=== PATIENT | female | born 1990 | race Hispanic/Latino ===

== ENCOUNTER 2016-10-24 18:30 | Inpatient (IN) | payer OTHER ==
[~2016-10-24] VITALS: Ht 156.2 cm; Wt 83.0 kg
[~2016-10-24 18:30] MED LIST: PREN1TAB73 PO; iron sulfate PO
[2016-10-24] MEDS ORDERED: Oxytocin 30 Units/500 mL LR 30 UNITS in IV Premix 1 EACH IV PRN ×2 (18:50→20:55)
[2016-10-24] MEDS ORDERED: Hemorrhage Kit, Post Partum XX ONE ×2 (18:50→20:55)
[2016-10-24] MEDS ORDERED: Methylergonovine 0.2 mg/mL Inj IM PRN ×2 (18:50→20:55)
[2016-10-24] MEDS ORDERED: Lactated Ringer's 1,000 ML IV PRN (18:50)
[2016-10-24] MEDS ORDERED: Oxytocin 10 Unit/mL Inj IM PRN ×2 (18:50→20:55)
[2016-10-24] MEDS ORDERED: Carboprost 250 mCg/mL Inj IM PRN ×2 (18:50→20:55)
[2016-10-24] MEDS ORDERED: Sodium Chloride LOK Flush 10 mL Syringe IVFLUSH PRN (18:50)
[2016-10-24 19:05] LABS: Mean Corpuscular Hemoglobin 28.9 pg (27.0-35.0); Mean Corpuscular Volume 87.3 fL (81-100)
--- NOTE | 2016-10-24 20:06 | PCM.HPANE ---
Patient Data Surgeon Admitting Provider:Michel Nielsen Attending Provider:Michel Nielsen Primary Care Physician:Carine Harris MD Other Provider: Reason for Visit Term Labor TERM LABOR Ht/WT & BMI Body Mass Index Allergies Coded Allergies: No Known Allergies (Unverified Allergy, 05/11/10) Past Anesthesia History Anesthesia History: Denies:: Abnormal Airway Diabetes History Hx Diabetes?: No Medications Hypertension Medication: No Home Meds Incl Beta Justina: No Reported Medications [iron sulfate] No Conflict [id number] Mg PO DAILY 11/05/12 Vit/Fe Fumarate/Fa-Expunged Drug, Do (-Expunged Drug, Do Not Renew!)1 Tab Tablet1 Tab PO DAILY 05/11/10 History HEENT History: Denies:: Abnormal Airway Difficult Intubation Hx of Heart Problems?: No Hx of Respiratory Problem?: No Hx Neurologic Problems?: No Hx of GI Problems?: No Hx of Problems?: No HX of Peritoneal Dialysis: No Hx Musculoskeletal Problems?: No Hx of Psycho/Social Problems?: No Hx Surgeries?: No Hx Any Other Health Problems?: No Hx Diabetes: No Hx Alcohol Use: NoHx Substance Use: No Smoking Status: Unknown if Ever Smoker Have You Smoked inLast 12 mo: No Stop/Bang Treated for Sleep Apnea?: No Do You Have a CPAP Machine?: No Risk Assessment Category Category 1A: Patient has history of documented sleep apnea, and HAS NOT received any narcotic, sedative or anesthesia administration during this stay. Category 1B: Patient has history of documented sleep apnea, and HAS received any narcotic , sedative or anesthesia administration during this stay Category 2: Patient has SUSPECTED Obstructive Sleep Apnea, and HAS received any narcotic , sedative or anesthesia administration during this stay. Category 3: Patient has SUSPECTED Obstructive Sleep Apnea and HAS NOT received narcotic, sedative or anesthesia administration during this stay. Category 4: Outpatient in Procedural Areas with known sleep apnea or who screen positive for High Risk via the STOP/BANG questionnaire. Exam Exam General Appearance: Alert, Oriented X3, Cooperative, No Acute Distress HEENT/AIRWAY: MP 2 Lungs: Clear to Auscultation, Normal Air Movement Heart: Exam Unremarkable, Regular Rate/Rhythm, No Murmurs/Rubs/Gallops Meds/Labs/Diagnostics Labs Test 10/24/16 18:45 10/24/16 19:00 White Blood Count 13.6th/mm3 (3.8-10.1) Red Blood Count 3.87mil/mm3 (3.90-5.20) Hemoglobin 11.2g/dL (12.0-15.6) Hematocrit 33.8% (35.0-46.0) Mean Corpuscular Volume 87.3fL (81-100) Mean Corpuscular Hemoglobin 28.9pg (27.0-35.0) Mean Corpuscular Hemoglobin Concent 33.1% (32.0-37.0) Red Cell Distribution Width 16.0% (12.3-15.4) Platelet Count 279bil/L (150-400) Urine Opiates Screen Negative Urine Methadone Screen Negative Urine Barbiturates Screen Negative Urine Amphetamines Screen Negative Urine Benzodiazepines Screen Negative Urine Cocaine Metabolite Screen Negative Urine Cannabinoids Screen Negative Plan Impression Patient chart reviewed, patient interviewed and anesthestic plan with risks, benefits, and alternatives discussed, and informed consent obtained. ASA Physical Status: ASA1 Normal Healthy Anesthetic Plan: Epidural Bene/Risks/Altern/Consents: Yes HP Complete Prior to Induction: Yes Ish Henriquez MD Oct 24, 2016 20:06
[2016-10-24] MEDS ORDERED: Lactated Ringer's 1,000 ML IV SCH (20:53)
[2016-10-24] MEDS ORDERED: Benzocaine (Dermoplast) 20% 60 Gm Spray TOPICAL PRN (20:55)
[2016-10-24] MEDS ORDERED: HYDROcodone-APAP 5-325 mg Tablet PO PRN (20:55)
[2016-10-24] MEDS ORDERED: LANOlin HPA 7 Gm Ointment TOPICAL PRN (20:55)
[2016-10-24] MEDS ORDERED: Witch Hazel-Glycerin Pads TOPICAL PRN (20:55)
--- NOTE | 2016-10-24 22:34 | PROCED ---
[address] [address] PROCEDURE NOTE PATIENT: HOLGER BLANCHARD : 1990 MR#: [id number] ADMIT: 10/24/2016 JOB ID: [id number] DATE OF SERVICE: 10/24/2016 POSTOPERATIVE DIAGNOSIS(ES): PREOPERATIVE DIAGNOSIS(ES): SURGEON: Michel Zapata MD On October 24, 2016 at 8:33 p.m. this 25-year-old, G3, P2 female at 38-1/2 weeks estimated gestational age delivered an by vacuum delivery. The patient presented to Labor and Delivery on her way down to [place] since she was a patient of the nurse stunt driver there. Unfortunately, at about 6 p.m., her water broke and she soaked herself and was having contractions and so she came here. The patient was 5 cm dilated and was admitted. At 6 cm dilation, she desired an epidural but was going fast and so she got an intrathecal block. This was effective. The patient's heart tracing was reactive and reassuring up until the point of pushing. She rapidly made it to complete and in the meantime, had no fever and required no antibiotics. She required about 15 minutes of pushing, but was not a highly effective pusher given the intrathecal block. The heart tracing was noted to have some significant terminal decelerations into the 60s and 70s, and so after a couple of episodes of that, the vacuum was applied in an area away from the fontanelles. There was notably no cervix present. The 1st pull was a pop-off as was the 2nd pull. She seemed to make progress and so I refrained from the vacuum for a set of contractions. During this set of contractions, the decelerations occurred again and so on the following set of contractions, the vacuum was applied. This time, there was no pop-off and it resulted in good advancement of the head to . The vacuum was released. The head was delivered with mom pushing alone. The shoulder delivered easily, but with the delivery of the shoulder it was noted that the cord had been pushed down over the shoulder towards the body and around the arm and legs. The was delivered nonetheless, and unwrapped from his cord. He was noted to have poor tone. The cord was immediately clamped and cut and the was handed off to the waiting folder operator who had been called earlier. Cord gases were sent and cord blood was sent for analysis. Upon arrival at the warmer, the infant cried vigorously and started to resuscitate himself. Please see the folder operator's notes for this. At no time was there meconium noted. The placenta delivered approximately 5 minutes later spontaneously and intact with a three-vessel cord. No tearing was noted. The patient's uterus was found to be firm but because this was her 3rd delivery, Pitocin was started. The patient's rectum was intact. Counts were correct x2. The patient was in excellent condition following the procedure. The infant also seen in excellent condition by the time I left the room.
--- NOTE | 2016-10-25 02:16 | PCM.ANEP1 ---
Post Anesthesia Phase 1 PACU Phase 1 Assessment Anesthetic Administered: Epidural Level of Alertness: Awake, talking HARLEY's with Equal Strength: Yes Pain: No Nausea or Vomiting: No Oxygen Delivery: Nasal Cannula Lungs: Clear to Auscultation, Normal Air Movement Dermatome Level: Full Sensation Ish Henriquez MD Oct 25, 2016 02:16
--- NOTE | 2016-10-25 02:17 | PCM.ANEP2 ---
Post Anesthesia Evaluation ASA/CMS Post Anesthesia VS in Patient's Normal Range?: Yes Resp Stable; Airway Patent?: Yes CV Function & Hydration Stable: Yes Mental Status Recovered?: Yes Pain control Satisfactory?: Yes N/V Control Satisfactory?: Yes Ish Henriquez MD Oct 25, 2016 02:17
[2016-10-25 07:21] LABS: Mean Corpuscular Hemoglobin 28.2 pg (27.0-35.0); Mean Corpuscular Volume 87.4 fL (81-100)
--- NOTE | 2016-10-25 09:14 | PCM.DC.OB ---
Obstetrical Discharge Summary Date of Service Oct 25, 2016 Date of hospital admission Oct 24, 2016 at 18:30 Date of Discharge: Oct 25, 2016 Providers Admitting Physician: Michel Nielsen Primary Care Physician: Carine Harris MD Attending Physician: Michel Nielsen Problems: (1) Status post normal vaginal delivery Comment: Vac. Delivery Last Edited By: Michel Zapata MD on Oct 25, 2016 09: 11 Status: Acute ICD Code: [id number] Consultations None Invasive procedures Vacuum Delivery Vaginally Date of Procedure: Oct 24, 2016 Hospital Course: Patient presented in labor/SROM and needed vacuum assistance for delivery due to heart rate decelerations. Did well immediately and in recovery. ([iron sulfate]) 325 MG PO DAILY (Reported) Vit/Fe Fumarate/Fa-Expunged Drug, Do (-Expunged Drug, Do Not Renew!) 1 Tab Tablet 1 TAB PO DAILY (Reported) Disposition F/u with CNM per their protocol and certainly by six weeks . Discharge Diet: No restrictions Discharge Activity-General: Pelvic Rest for 6 weeks, Balance rest and activity , Activity as pain allows, Activity as energy allows, No lifting >15 pounds for 2 weeks Michel Zapata MD Oct 25, 2016 09:14
--- NOTE | 2016-10-25 09:16 | PCM.DIOB ---
Obstetrical Disch Instruction Date of Service: Oct 25, 2016 Dates of Hospitalization Date of Hospital Admission Oct 24, 2016 at 18:30 Providers Admitting Physician: Michel Nielsen Primary Care Physician: Carine Harris MD Attending Physician: Michel Nielsen Discharge Diagnosis Problems: (1) Status post normal vaginal delivery Permanent Comment: Vac. Delivery Last Edited By: Michel Zapata MD on Sep 09:11 Status: Acute ICD Code: [id number] Diet Discharge Diet: No restrictions Activity Discharge Activity-General: Pelvic Rest for 6 weeks, Try not to overdue, Balance rest and activity, Activity as pain allows, Activity as energy allows, No lifting >15 pounds for 2 weeks Dressing and Incisional Care Hygiene: May shower, Perineal care, Sitz bath, Dermoplast spray, Witch Cassidy pads, Ice Follow Up Plan Follow Up Plan F/u with nurse world geography teacher per their protocol and certainly by six weeks post . Follow-up appointment: Weeks (6) Call your provider for: Fever or Chills, Heavy vaginal bleeding, Excessive constipation, Vaginal discomfort, Red painful breasts Michel Zapata MD Oct 25, 2016 09:16
[2016-10-25] MEDS ORDERED: IBUP800T28 PO (09:17)
[2016-10-25 14:27] VITALS: BP 112/74; PULSE 83; RESP 18
== END 2016-10-25 18:40 | disposition home or self-care (01) | DRG 560 ==
LOC: FBC 18:30
PROVIDERS: ADMIT Family Medicine; ATTEND Family Medicine
PROC: 10D07Z6 Extraction of Products of Conception, Vacuum, Via Natural or Artificial Opening (ICD-10-PCS; principal; 2016-10-24)
DX: O76 Abnormality in fetal heart rate and rhythm complicating labor and delivery (principal); O69.89X0 Labor and delivery complicated by other cord complications, not applicable or unspecified; Z37.0 Single live birth; Z3A.38 38 weeks gestation of pregnancy